=== PATIENT | male | born 1990 | race Caucasian/White ===

== ENCOUNTER 2024-08-24 23:27 | Emergency (ER) | payer MEDICAID ==
[~2024-08-24] VITALS: Ht 172.7 cm; Wt 220.0 kg
[2024-08-24 23:33] VITALS: RESP 18; O2SAT 100
[2024-08-24 23:39] VITALS: TEMP 36.7; O2SAT 99
[2024-08-25 00:21] VITALS: BP 144/86; PULSE 73
[2024-08-25] MEDS: KETOROLAC 30MG/ML VIAL IM ONE (00:21)
[2024-08-25 01:43] LABS: BASOPHILS % 0.4 % (0.0-2.0); EOSINOPHILS % 1.5 % (0.0-5.0); HEMATOCRIT. 46.1 % (42.0-52.0); HEMOGLOBIN. 15.9 g/dL (14.0-18.0); LYMPHOCYTES % 28.1 % (20.0-50.0); MEAN CORPUSCULAR HEMOGLOBIN 29.1 pg (28.0-32.0); MEAN CORPUSCULAR HGB CONC 34.5 g/dL (31.0-37.0); MEAN CORPUSCULAR VOLUME 84.3 fL (80.0-94.0); MEAN PLATELET VOLUME 8.3 fl (7.4-10.4); MONOCYTES % 9.4 % (2.0-8.0); NEUTROPHILS % 60.6 % (40.0-76.0); PLATELET 275 x1000/uL (130-400); RED BLOOD CELL COUNT 5.46 mill/uL (4.7-6.1); RED CELL DISTRIBUTION WIDTH 13.4 % (11.6-14.6); WHITE BLOOD COUNT 7.6 x1000/uL (4.5-11.0)
[2024-08-25 02:04] LABS: CHLORIDE 101 mEq/L (98-107); POTASSIUM 3.9 mEq/L (3.5-5.1); SODIUM 134 mEq/L (136-145)
[2024-08-25 02:05] LABS: CALCIUM 9.4 mg/dL (8.7-10.4); CARBON DIOXIDE 27 mEq/L (21-32)
[2024-08-25] MEDS: ASPIRIN 81MG TABLET PO ONE (02:08)
[2024-08-25 02:10] LABS: CREATININE 1.3 mg/dL (0.6-1.3); GLUCOSE 96 mg/dL (70-105); UREA NITROGEN BLOOD 18 mg/dL (9-23)
[2024-08-25 02:40] LABS: TROPONIN I HIGH SENSITIVITY < 4 ng/L (3.0-53)
[2024-08-25 03:57] LABS: TROPONIN I HIGH SENSITIVITY 4 ng/L (3.0-53)
[2024-08-25] MEDS ORDERED: IBUP-2028 MT (04:19)
== END 2024-08-25 04:44 | disposition home or self-care (01) ==
LOC: ER 23:27
DX: R07.89 Other chest pain (principal)
CPT/HCPCS: 36415 ×2; 71045; 93005; 99285; 80048; 85025; 84484; 96372; Z7610; J1885